=== PATIENT | male | born 1945 | race Caucasian/White ===

== ENCOUNTER → 2016-11-01 | Outpatient (CLI) | payer MEDICARE | LOC: GMAL 11:36 | PROVIDERS: ATTEND Family Medicine | DX: D51.3 Other dietary vitamin B12 deficiency anemia (principal); E55.9 Vitamin D deficiency, unspecified ==

== ENCOUNTER 2018-08-26 18:54 | Emergency (ER) | payer MEDICARE ==
[2018-08-26] MEDS ORDERED: TETRACAINE HCL 0.5% OPHTH SOL 1 DROP ONE (20:00)
[2018-08-26] MEDS ORDERED: TETRACAINE HCL 0.5% OPHTH SOL 1 DROP BOTH_EYES ONE (20:02)
[2018-08-26] MEDS ORDERED: FLUORESCEIN SODIUM OPHTH STRIP BOTH_EYES ONE (20:02)
[2018-08-26] MEDS ORDERED: PREGABALIN 75 MG CAP PO ONE (20:17)
[2018-08-26] MEDS ORDERED: KETOROLAC TROMETHAMINE INJ 30 MG/ML VIAL IM ONE (20:17)
--- NOTE | 2018-08-26 20:20 | ED.PDOC ---
History of Present Illness - General Chief Complaint: Eye Problems Stated Complaint: eye pain Time Seen by Provider: 08/26/18 18:57 Source: patient Exam Limitations: no limitations - History of Present Illness Initial Comments: The patient is a 72-year-old male presenting to the emergency room secondary to increasing left eye pain over the last couple of days. 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 He has been on a ramped up dose of acyclovir along with topical antivirals. He reports that the pain was just too much in his left eye tonight so he presented to the emergency room. He has been applying topical anesthetics in the left eye. I did give his lens blocker Dr. Kaye a call who explained the above. he is going to try to get him into a corneal specialist [facility] or [place]. He currently has bandage contacts in place to help reduce pain. He actually took the left one out earlier today. The right one is still in place and is not giving him much pain. The patient is already on very extensive opiate dosing. Fluorescein exam shows a mild abrasion at approximately 6:00 over the cornea. This is on the left. No real dendritic extensions. No evidence of any skin lesion.extraocular movements are intact. Vision is mildly blurry bilaterally but apparently that is his baseline. No evidence of increased pressure. Pupils are reactive bilaterally. the patient is very worked up and demonstrative. Timing/Duration: unsure Severity: severe Improving Factors: nothing Worsening Factors: nothing Associated Symptoms: denies symptoms Allergies/Adverse Reactions: Allergies NO KNOWN ALLERGY Allergy (Verified 10/09/15 00:33) Home Medications: Ambulatory Orders ALPRAZolam [Xanax] 0.5 mg PO BEDTIME 10/09/15 Acyclovir [Zovirax] 400 mg PO BID 10/09/15 Armodafinil [Nuvigil] 250 mg PO PRN PRN 10/09/15 Bumetanide 1 mg PO PRN PRN 10/09/15 Finasteride 5 mg PO DAILY 10/09/15 Oxycodone HCl 30 mg PO PRN PRN 10/09/15 Spironolactone 25 mg PO PRN PRN 10/09/15 Dilaudid Pain Pump 1 mg DAILY 11/12/15 Review of Systems - Review of Systems Constitutional: States: no symptoms reported EENTM: States: see HPI Respiratory: States: no symptoms reported Cardiology: States: no symptoms reported Gastrointestinal/Abdominal: States: no symptoms reported Genitourinary: States: no symptoms reported Musculoskeletal: States: no symptoms reported Skin: States: no symptoms reported Neurological: States: no symptoms reported Endocrine: States: no symptoms reported All other Systems: No Change from Baseline Past Medical History (General) - Patient Medical History Hx Seizures: No Hx Stroke: No Hx Dementia: No Hx Asthma: No - "short of breath" Hx of COPD: No Hx Cardiac Disorders: No Hx Congestive Heart Failure: Yes - "some doctors say yes, some say no" Hx Pacemaker: No Hx Hypertension: No Hx Thyroid Disease: No Hx Diabetes: No Hx Gastroesophageal Reflux: No Hx Renal Disease: No Hx Cancer: No Hx of HIV: No Hx Hepatitis C: No Hx MRSA: No - Vaccination History Hx Tetanus, Diphtheria Vaccination: Yes Hx Influenza Vaccination: - unknown Hx Pneumococcal Vaccination: Yes - 2016 - Social History Hx Tobacco Use: No Hx Chewing Tobacco Use: No Hx Alcohol Use: No Hx Substance Use: No Hx Substance Use Treatment: No Hx Depression: No Hx Physical Abuse: No Hx Emotional Abuse: No Hx Suspected Abuse: No - Female History Patient : No Family Medical History - Family History Father Family History: Unknown Living Status: Physical Exam - Physical Exam General Appearance: Alert, Anxious Eye Exam: bilateral other - see history of present illness Ears, Nose, Throat: hearing grossly normal, normal pharynx Neck: supple Respiratory: no respiratory distress, no accessory muscle use Cardiovascular/Chest: normal peripheral pulses, no edema Peripheral Pulses: radial,right: 2+, radial,left: 2+ Rectal Exam: deferred Extremity: no pedal edema, normal capillary refill Neurologic: rn visiting II-XII nml as tested, alert, oriented x 3, other - the patient is very anxious Skin Exam: normal color Comments: Vital Signs - 24 hr 08/26/18 19:22 Temperature 97.4 F L Pulse Rate [ 90 Left] Respiratory 18 Rate Blood Pressure 153/96 [Right Arm] O2 Sat by Pulse 94 L Oximetry Progress - Progress Progress: 08/26/18 20:22 the patient's 72-year-old male presents secondary to 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 I have discussed the patient with his lens blocker. He is to keep follow-up with his lens blocker tomorrow to get set up with a corneal specialist. He is to continue taking his acyclovir. The bandage contact was put back in place. He can continue to take his topical pain medications that has been written by his lens blocker. He was given a dose of Lyrica here and Toradol here for additional pain control. ER warnings were given. 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 Copy, Patient Portal Self Enrollment Diet: regular diet Activity: increase activity as tolerated Referrals: Laurent Quijano III, MD [Primary Care Provider] - 1-2 Weeks Home Medications: Ambulatory Orders ALPRAZolam [Xanax] 0.5 mg PO BEDTIME 10/09/15 Acyclovir [Zovirax] 400 mg PO BID 10/09/15 Armodafinil [Nuvigil] 250 mg PO PRN PRN 10/09/15 Bumetanide 1 mg PO PRN PRN 10/09/15 Finasteride 5 mg PO DAILY 10/09/15 Oxycodone HCl 30 mg PO PRN PRN 10/09/15 Spironolactone 25 mg PO PRN PRN 10/09/15 Dilaudid Pain Pump 1 mg DAILY 11/12/15 Additional Instructions: the patient's 72-year-old male presents secondary to left eye pain rel ated to his chronic herpes keratitis. I have discussed the patient with his lens blocker. He is to keep follow-up with his lens blocker tomorrow to get set up with a corneal specialist. He is to continue taking his acyclovir. The bandage contact was put back in place. He can continue to take his topical pain medications that has been written by his lens blocker. He was given a dose of Lyrica here and Toradol here for additional pain control. ER warnings were given.
[2018-08-26 20:47] VITALS: BP 138/73; TEMP 97.9; O2SAT 97
== END 2018-08-26 20:47 | disposition home or self-care (01) ==
LOC: ER 18:54
DX: B00.52 Herpesviral keratitis (principal); S05.02XA Injury of conjunctiva and corneal abrasion without foreign body, left eye, initial encounter; Z79.899 Other long term (current) drug therapy; X58.XXXA Exposure to other specified factors, initial encounter; Y92.9 Unspecified place or not applicable

== ENCOUNTER 2018-08-28 12:38 | Emergency (ER) | payer MEDICARE ==
[2018-08-28] MEDS ORDERED: KETOROLAC TROMETHAMINE INJ 30 MG/ML VIAL IM ONE (12:57)
[2018-08-28] MEDS ORDERED: PREGABALIN 75 MG CAP PO ONE (12:58)
[2018-08-28 12:59] VITALS: BP 171/94; TEMP 98.4; O2SAT 99
--- NOTE | 2018-08-28 13:00 | ED.PDOC ---
History of Present Illness - General Chief Complaint: Eye Problems Stated Complaint: eye complaint Time Seen by Provider: 08/28/18 12:55 Source: patient Exam Limitations: no limitations - History of Present Illness Initial Comments: the patient is a 72-year-old male presenting to the emergency room secondary to uncontrolled pain due to his herpetic keratitis bilaterally. The patient was actually seen here by me little more than 36 hours ago and received a dose of Toradol and Lyrica which worked very well for his pain. He has seen his rad technologist since. He is on appropriate treatment for the eyes. He is wanting to try another dose of the Lyrica and Toradol to see if he can get back under control as far as the pain goes. This does seem appropriate. He appears to have tolerated the doses well. No new symptoms compared to last visit. Timing/Duration: 1 week Severity: moderate Improving Factors: medication Worsening Factors: nothing Associated Symptoms: denies symptoms Allergies/Adverse Reactions: Allergies NO KNOWN ALLERGY Allergy (Verified 10/09/15 00:33) Home Medications: Ambulatory Orders ALPRAZolam [Xanax] 0.5 mg PO BEDTIME 10/09/15 Acyclovir [Zovirax] 400 mg PO BID 10/09/15 Armodafinil [Nuvigil] 250 mg PO PRN PRN 10/09/15 Bumetanide 1 mg PO PRN PRN 10/09/15 Finasteride 5 mg PO DAILY 10/09/15 Oxycodone HCl 30 mg PO PRN PRN 10/09/15 Spironolactone 25 mg PO PRN PRN 10/09/15 Dilaudid Pain Pump 1 mg DAILY 11/12/15 Pregabalin [Lyrica] 75 mg PO DAILY #14 cap 08/28/18 Review of Systems - Review of Systems Constitutional: States: malaise EENTM: States: see HPI Respiratory: States: no symptoms reported Cardiology: States: no symptoms reported Gastrointestinal/Abdominal: States: no symptoms reported Genitourinary: States: no symptoms reported Musculoskeletal: States: see HPI - chronic issues Skin: States: no symptoms reported Neurological: States: see HPI All other Systems: No Change from Baseline Past Medical History (General) - Patient Medical History Hx Seizures: No Hx Stroke: No Hx Dementia: No Hx Asthma: No - "short of breath" Hx of COPD: No Hx Cardiac Disorders: No Hx Congestive Heart Failure: Yes - "some doctors say yes, some say no" Hx Pacemaker: No Hx Hypertension: No Hx Thyroid Disease: No Hx Diabetes: No Hx Gastroesophageal Reflux: No Hx Renal Disease: No Hx Cancer: No Hx of HIV: No Hx Hepatitis C: No Hx MRSA: No - Vaccination History Hx Tetanus, Diphtheria Vaccination: Yes Hx Influenza Vaccination: - unknown Hx Pneumococcal Vaccination: Yes - 2016 - Social History Hx Tobacco Use: No Hx Chewing Tobacco Use: No Hx Alcohol Use: No Hx Substance Use: No Hx Substance Use Treatment: No Hx Depression: No Hx Physical Abuse: No Hx Emotional Abuse: No Hx Suspected Abuse: No - Female History Patient : No Family Medical History - Family History Father Family History: Unknown Living Status: Physical Exam - Physical Exam General Appearance: Alert, No apparent distress Eye Exam: bilateral other - epeat forcing exam is not done. No obvious extraocular lesions. Ears, Nose, Throat: hearing grossly normal, normal ENT inspection Neck: full range of motion, supple Respiratory: lungs clear, normal breath sounds, no respiratory distress, no accessory muscle use Cardiovascular/Chest: normal peripheral pulses, no edema, other - regular rate Peripheral Pulses: radial,right: 2+, radial,left: 2+ Gastrointestinal/Abdominal: non tender, soft Rectal Exam: deferred Extremity: non-tender, no pedal edema, normal capillary refill Neurologic: paediatric thoracic physician II-XII nml as tested, alert, normal mood/affect, oriented x 3 Skin Exam: normal color Comments: Vital Signs - 24 hr 08/28/18 12:45 Temperature 98.4 F Pulse Rate [ 70 pulse ox] Respiratory 18 Rate Blood Pressure 171/94 [Left Arm] O2 Sat by Pulse 99 Oximetry Progress - Progress Progress: 08/28/18 13:01 the patient is a 72-year-old patient with bilateral herpetic keratitis. He has seen ophthalmology and is on appropriate antiviral therapy. He is presenting secondary to uncontrolled pain due to the process. He did respond well at his last visit here to a dose of Toradol and Lyrica. While we can certainly not do extended Toradol dosing we will go ahead and give him a dose here today with another dose of Lyrica. He will be written for Lyrica 75 mg daily for the next 2 weeks as a trial. If this works well for him then he can discuss with his primary care doctor extending this type of treatment as long as he is tolerating it well. ER warnings were given. 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 Copy, Patient Portal Self Enrollment Diet: regular diet Activity: increase activity as tolerated Referrals: Laurent Quijano III, MD [Primary Care Provider] - 1-2 Weeks Prescriptions: Pregabalin [Lyrica] 75 mg PO DAILY #14 cap Home Medications: Ambulatory Orders ALPRAZolam [Xanax] 0.5 mg PO BEDTIME 10/09/15 Acyclovir [Zovirax] 400 mg PO BID 10/09/15 Armodafinil [Nuvigil] 250 mg PO PRN PRN 10/09/15 Bumetanide 1 mg PO PRN PRN 10/09/15 Finasteride 5 mg PO DAILY 10/09/15 Oxycodone HCl 30 mg PO PRN PRN 10/09/15 Spironolactone 25 mg PO PRN PRN 10/09/15 Dilaudid Pain Pump 1 mg DAILY 11/12/15 Pregabalin [Lyrica] 75 mg PO DAILY #14 cap 08/28/18 Additional Instructions: the patient is a 72-year-old patient with bilateral herpetic keratitis. He has seen ophthalmology and is on appropriate antiviral therapy. He is presenting secondary to uncontrolled pain due to the process. He did respond well at his last visit here to a dose of Toradol and Lyrica. While we can certainly not do extended Toradol dosing we will go ahead and give him a dose here today with another dose of Lyrica. He will be written for Lyrica 75 mg daily for the next 2 weeks as a trial. If this works well for him then he can discuss with his primary care doctor extending this type of treatment as long as he is tolerating it well. ER warnings were given.
== END 2018-08-28 13:46 | disposition home or self-care (01) ==
LOC: ER 12:38
DX: B00.52 Herpesviral keratitis (principal)

== ENCOUNTER 2018-09-02 13:45 | Emergency (ER) | payer MEDICARE ==
[2018-09-02] MEDS ORDERED: KETOROLAC TROMETHAMINE INJ 60 MG/2 ML VIAL IM ONE ×2 (14:07→14:13)
[2018-09-02] MEDS ORDERED: TETRACAINE HCL 0.5% OPHTH SOL 1 DROP ONE (14:08)
[2018-09-02] MEDS ORDERED: OXYMETAZOLINE NASAL SPRAY 15 ML BTTL ONE (14:30)
[2018-09-02] MEDS ORDERED: OXYMETAZOLINE NASAL SPRAY 15 ML BTTL BNAS ONE (14:31)
--- NOTE | 2018-09-02 15:07 | ED.PDOC ---
History of Present Illness - General Chief Complaint: Eye Problems Stated Complaint: loss of vision Time Seen by Provider: 09/02/18 14:03 Source: patient Exam Limitations: clinical condition - History of Present Illness Initial Comments: Patient presents with an acute exacerbation of herpes keratitis. He was diagnosed three years ago and is on chronic acyclovir. He says that he usually has 2 exacerbations per year that last about 2-4 days and he does not get loss of vision, just more pain. This episode has been going on for about 3 weeks. He saw his contingents supervisor, Dr. Kaye, two days ago and got some lubricant eyedrops that have topical anesthetic in them. This morning he woke up in excrutiating pain. He says that if he holds his hand in front of his face, he can barely make out the silhouette. He denies having had a loss of vision before. No other complaints. Timing/Duration: changing over time Severity: severe Improving Factors: nothing Worsening Factors: nothing Associated Symptoms: denies symptoms Allergies/Adverse Reactions: Allergies NO KNOWN ALLERGY Allergy (Verified 08/28/18 12:59) Home Medications: Ambulatory Orders ALPRAZolam [Xanax] 0.5 mg PO BEDTIME 10/09/15 Acyclovir [Zovirax] 400 mg PO BID 10/09/15 Armodafinil [Nuvigil] 250 mg PO PRN PRN 10/09/15 Bumetanide 1 mg PO PRN PRN 10/09/15 Finasteride 5 mg PO DAILY 10/09/15 Oxycodone HCl 30 mg PO PRN PRN 10/09/15 Spironolactone 25 mg PO PRN PRN 10/09/15 Dilaudid Pain Pump 1 mg DAILY 11/12/15 Pregabalin [Lyrica] 75 mg PO DAILY #14 cap 08/28/18 Review of Systems - Review of Systems Constitutional: States: no symptoms reported EENTM: States: see HPI Respiratory: States: no symptoms reported Cardiology: States: no symptoms reported Gastrointestinal/Abdominal: States: no symptoms reported Genitourinary: States: no symptoms reported Musculoskeletal: States: no symptoms reported Skin: States: no symptoms reported Neurological: States: no symptoms reported Endocrine: States: no symptoms reported Hematologic/Lymphatic: States: no symptoms reported Past Medical History (General) - Patient Medical History Hx Seizures: No Hx Stroke: No Hx Dementia: No Hx Asthma: No - "short of breath" Hx of COPD: No Hx Cardiac Disorders: No Hx Congestive Heart Failure: No Hx Pacemaker: No Hx Hypertension: No Hx Thyroid Disease: No Hx Diabetes: No Hx Gastroesophageal Reflux: No Hx Renal Disease: No Hx Cancer: No Hx of HIV: No Hx Hepatitis C: No Hx MRSA: No Surgical History: appendectomy, cholecystectomy, tonsillectomy, other - Vaccination History Hx Tetanus, Diphtheria Vaccination: Yes Hx Influenza Vaccination: Yes - 2018 Hx Pneumococcal Vaccination: Yes - 2018 - Social History Hx Tobacco Use: No Hx Chewing Tobacco Use: No Hx Alcohol Use: No Hx Substance Use: No Hx Substance Use Treatment: No Hx Depression: No Hx Physical Abuse: No Hx Emotional Abuse: No Hx Suspected Abuse: No - Female History Patient : No Family Medical History - Family History Father Family History: Unknown Living Status: Physical Exam - Physical Exam General Appearance: Obvious distress Eye Exam: bilateral other - injected sclera, PERRL, patient is guarding Ears, Nose, Throat: normal ENT inspection Neck: non-tender, full range of motion, supple Respiratory: lungs clear Cardiovascular/Chest: regular rate, rhythm, no edema Gastrointestinal/Abdominal: normal bowel sounds, non tender, soft Extremity: normal range of motion, non-tender Neurologic: alert, normal mood/affect, oriented x 3 Skin Exam: normal color Lymphatic: no adenopathy Progress - Progress Progress: 09/02/18 15:09 Patient was given Toradol 30 mg IM x one and the pain improved markedly. I called his contingents supervisor, Dr. Kaye, who said that the patient's baseline acuity was 20/50. We attempted to have the patient do an acuity test but he could not see the chart. Dr. Kaye agreed that if the patient had loss of vision that he would benefit from seeing an opthalmologist today. He was accepted for transfer to [facility]. The patient chose to go by private vehicle. Care warnings were given and the patient agreed to go straight to the E.R. there. Departure - Departure Clinical Impression: Acute eye pain, Herpes simplex keratitis, Vision loss Disposition: Transfer to Hospital Condition: Fair Departure Forms: ED Discharge - Pt. Copy, Patient Portal Self Enrollment Diet: other - NPO Activity: other - as per the inpatient doctor Referrals: Laurent Quijano III, MD [Primary Care Provider] - 1-2 Weeks Home Medications: Ambulatory Orders ALPRAZolam [Xanax] 0.5 mg PO BEDTIME 10/09/15 Acyclovir [Zovirax] 400 mg PO BID 10/09/15 Armodafinil [Nuvigil] 250 mg PO PRN PRN 10/09/15 Bumetanide 1 mg PO PRN PRN 10/09/15 Finasteride 5 mg PO DAILY 10/09/15 Oxycodone HCl 30 mg PO PRN PRN 10/09/15 Spironolactone 25 mg PO PRN PRN 10/09/15 Dilaudid Pain Pump 1 mg DAILY 11/12/15 Pregabalin [Lyrica] 75 mg PO DAILY #14 cap 08/28/18
[2018-09-02] MEDS ORDERED: TETRACAINE HCL 0.5% OPHTH SOL 1 DROP BOTH_EYES ONE (15:15)
[2018-09-02 16:17] VITALS: BP 167/91; TEMP 97.6; O2SAT 93
== END 2018-09-02 16:30 | disposition short-term general hospital (02) ==
LOC: ER 13:45
DX: B00.52 Herpesviral keratitis (principal); H54.7 Unspecified visual loss; Z79.899 Other long term (current) drug therapy

== ENCOUNTER 2018-09-03 05:30 | Emergency (ER) | payer MEDICARE ==
--- NOTE | 2018-09-03 06:06 | ED.PDOC ---
History of Present Illness - General Source: patient Exam Limitations: no limitations - History of Present Illness Initial Comments: Patient presents with acute on chronic eye pain due to herpes keratitis. He was here this morning and said that he could not see his hand in front of his face. At that time, I contacted his manager trainee, Dr. Kaye, who said that if he has lost vision that it would be reasonable to have the patient see the opthalmologist rehabilitation aide/scheduler at an OSH. [facility] was the closest hospital that had an mobile device developer rehabilitation aide/scheduler and open beds if admission was needed. I spoke with an E.R. doctor there who agreed to see the patient but asked that I talk to their mobile device developer first. The transfer center advised me that the E.R. doctor could not request that because the patient was "auto- accepted". However, I asked the transfer center to page the mobile device developer so I could talk with them before the patient arrived. I have been here since that call and the opthalmologist never called here. It is unknown by me whether he/she was paged or not. The patient says that he got to [facility] and was given some eyedrops and two prescriptions. He says that the E.R. doctor in [place] told him it was "a wasted trip" and that "it could have been handled over the phone". It is unknown by me if that was actually told to the patient. He was told to be seen by Dr. Kaye first thing this morning. The pat teresa is very anxious and he said he called EMS because he was tripping over things in his apartment. He was planning to see Dr. Kaye this morning. He complains of pain in both eyes but says it has gotten better since he was treated with "eyedrops" in [place]. He says that "they didn't leave the drops in long enough". Patient is not a very good historian likely due to his anxiety about his condition. No other history is available. Timing/Duration: changing over time Severity: moderate Improving Factors: nothing Worsening Factors: nothing Associated Symptoms: denies symptoms - General Chief Complaint: Eye Problems Stated Complaint: eye pain due to ulcers in eyes Time Seen by Provider: 09/03/18 05:54 - History of Present Illness Allergies/Adverse Reactions: Allergies NO KNOWN ALLERGY Allergy (Verified 09/03/18 05:52) Home Medications: Ambulatory Orders ALPRAZolam [Xanax] 0.5 mg PO BEDTIME 10/09/15 Acyclovir [Zovirax] 400 mg PO BID 10/09/15 Armodafinil [Nuvigil] 250 mg PO PRN PRN 10/09/15 Bumetanide 1 mg PO PRN PRN 10/09/15 Finasteride 5 mg PO DAILY 10/09/15 Oxycodone HCl 30 mg PO PRN PRN 10/09/15 Spironolactone 25 mg PO PRN PRN 10/09/15 Dilaudid Pain Pump 1 mg DAILY 11/12/15 Pregabalin [Lyrica] 75 mg PO DAILY #14 cap 08/28/18 Review of Systems - Review of Systems Constitutional: States: no symptoms reported EENTM: States: see HPI Respiratory: States: no symptoms reported Cardiology: States: no symptoms reported Gastrointestinal/Abdominal: States: no symptoms reported Genitourinary: States: no symptoms reported Musculoskeletal: States: no symptoms reported Skin: States: no symptoms reported Neurological: States: no symptoms reported Endocrine: States: no symptoms reported Hematologic/Lymphatic: States: no symptoms reported Past Medical History (General) - Patient Medical History Hx Seizures: No Hx Stroke: No Hx Dementia: No Hx Asthma: No Hx of COPD: No Hx Cardiac Disorders: No Hx Congestive Heart Failure: No Hx Pacemaker: No Hx Hypertension: No Hx Thyroid Disease: No Hx Diabetes: No Hx Gastroesophageal Reflux: No Hx Renal Disease: No Hx Cancer: No Hx of HIV: No Hx Hepatitis C: No Hx MRSA: No Surgical History: appendectomy, tonsillectomy - Vaccination History Hx Tetanus, Diphtheria Vaccination: Yes Hx Influenza Vaccination: Yes - 2018 Hx Pneumococcal Vaccination: Yes - 2018 - Social History Hx Tobacco Use: No Hx Chewing Tobacco Use: No Hx Alcohol Use: No Hx Substance Use: No Hx Substance Use Treatment: No Hx Depression: No Hx Physical Abuse: No Hx Emotional Abuse: No Hx Suspected Abuse: No - Female History Patient : No Family Medical History - Family History Father Family History: Unknown Living Status: Physical Exam - Physical Exam General Appearance: Alert Eye Exam: bilateral other - opaque cornea. pupils reactive to light Ears, Nose, Throat: normal ENT inspection Neck: non-tender, full range of motion, supple Respiratory: lungs clear, normal breath sounds Cardiovascular/Chest: regular rate, rhythm, no edema Gastrointestinal/Abdominal: normal bowel sounds, non tender, soft Neurologic: alert, oriented x 3 Progress - Progress Progress: 09/03/18 06:30 Patient says he is planning to be in Dr. Kaye's office at 8 a.m. He will be kept here in the E.D. until almost [address] Kaye's office. Patient received Toradol 30 mg IM x one in the E.D. He slept most of the time and see med pain free, although, somewhat anxious. Departure - Departure Diet: resume usual diet Activity: increase activity as tolerated - Departure Clinical Impression: Herpes keratitis Disposition: Discharge to Home or Self Care Condition: Good Departure Forms: ED Discharge - Pt. Copy, Patient Portal Self Enrollment Instructions: DI for Eye Pain Referrals: Laurent Quijano III, MD [Primary Care Provider] - 1-2 Weeks Home Medications: Ambulatory Orders ALPRAZolam [Xanax] 0.5 mg PO BEDTIME 10/09/15 Acyclovir [Zovirax] 400 mg PO BID 10/09/15 Armodafinil [Nuvigil] 250 mg PO PRN PRN 10/09/15 Bumetanide 1 mg PO PRN PRN 10/09/15 Finasteride 5 mg PO DAILY 10/09/15 Oxycodone HCl 30 mg PO PRN PRN 10/09/15 Spironolactone 25 mg PO PRN PRN 10/09/15 Dilaudid Pain Pump 1 mg DAILY 11/12/15 Pregabalin [Lyrica] 75 mg PO DAILY #14 cap 08/28/18 Additional Instructions: Go directly to Dr. Kaye's office upon leaving the E.R. today.
[2018-09-03] MEDS ORDERED: KETOROLAC TROMETHAMINE INJ 30 MG/ML VIAL IM ONE (06:07)
[2018-09-03 08:21] VITALS: TEMP 97.6
[2018-09-03 08:28] VITALS: BP 153/73; O2SAT 98
== END 2018-09-03 08:27 | disposition home or self-care (01) ==
LOC: ER 05:30
DX: B00.52 Herpesviral keratitis (principal); Z79.899 Other long term (current) drug therapy

== ENCOUNTER 2018-10-06 13:58 | Emergency (ER) | payer MEDICARE ==
--- NOTE | 2018-10-06 14:24 | ED.PDOC ---
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 Patient has had a difficult time with depression and anxiety for the past month. 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 Since then he's been spiraling down with severe depression and anxiety. He was hospitalized several weeks ago for suicidal ideations and was doing better and was released home. He's been home for approximately a week but yesterday started having increasing anxiety and this morning started complaining of suicidal ideations with desire to . Patient was evaluated by mental health facility but they would like medical clearance prior to admission. Patient states he has chronic back pain that he uses a lot of pump for an as needed OxyContin. His brother states he's been medicating with his leftover OxyContin that he does not need for his back for his eye pain. Patient states he otherwise was in normal usual physical health including no fever, chills, cough or cold symptoms no chest pain or shortness of breath. Timing/Duration: 24 hours Severity: severe Improving Factors: nothing Worsening Factors: nothing Associated Symptoms: denies symptoms Allergies/Adverse Reactions: Allergies NO KNOWN ALLERGY Allergy (Verified 10/06/18 14:13) Home Medications: Ambulatory Orders ALPRAZolam [Xanax] 0.5 mg PO BEDTIME 10/09/15 Acyclovir [Zovirax] 400 mg PO BID 10/09/15 Dilaudid Pain Pump 1 mg DAILY 11/12/15 Doxycycline (Monohydrate) [Doxycycline] 100 mg PO DAILY 10/06/18 Haloperidol [Haldol] 5 mg PO BEDTIME 10/06/18 Oxycodone HCl [Oxycontin] 15 mg PO Q6H PRN 10/06/18 Prednisolone Opthalmic 1 drop RIGHT_EYE DAILY 10/06/18 Review of Systems - Review of Systems Constitutional: States: no symptoms reported. Denies: chills, fever EENTM: States: eye pain - secondary to recurrent infection of his eyes . Denies: ear discharge, nose congestion, throat pain Respiratory: States: no symptoms reported. Denies: cough, short of breath, wheezing Cardiology: States: no symptoms reported. Denies: chest pain, edema, palpitations Gastrointestinal/Abdominal: States: no symptoms reported. Denies: abdominal pain, constipation, diarrhea, nausea Genitourinary: States: no symptoms reported. Denies: frequency Musculoskeletal: States: back pain - chronic at baseline Past Medical History (General) - Patient Medical History Hx Seizures: No Hx Stroke: No Hx Dementia: No Hx Asthma: No Hx of COPD: No Hx Cardiac Disorders: No Hx Congestive Heart Failure: No Hx Pacemaker: No Hx Hypertension: No Hx Thyroid Disease: No Hx Diabetes: No Hx Gastroesophageal Reflux: No Hx Renal Disease: No Hx Cancer: No Hx of HIV: No Hx Hepatitis C: No Hx MRSA: No Surgical History: appendectomy, tonsillectomy - Vaccination History Hx Tetanus, Diphtheria Vaccination: Yes Hx Influenza Vaccination: Yes - 2018 Hx Pneumococcal Vaccination: Yes - 2018 - Social History Hx Tobacco Use: No Hx Chewing Tobacco Use: No Hx Alcohol Use: No Hx Substance Use: No Hx Substance Use Treatment: No Hx Depression: No Hx Physical Abuse: No Hx Emotional Abuse: No Hx Suspected Abuse: No - Female History Patient : No Family Medical History - Family History Father Family History: Unknown Living Status: Physical Exam - Physical Exam General Appearance: Alert, Comfortable, Frail, No apparent distress Eye Exam: bilateral other - cloudy bilaterally with erythema of the inferior conjuctiva on the L Ears, Nose, Throat: normal ENT inspection, normal pharynx Neck: non-tender, full range of motion, supple, normal inspection Respiratory: chest non-tender, lungs clear, normal breath sounds, no respiratory distress Cardiovascular/Chest: normal peripheral pulses, regular rate, rhythm, no edema, no murmur Gastrointestinal/Abdominal: normal bowel sounds, non tender, soft Back Exam: normal inspection Extremity: non-tender Neurologic: alert, normal mood/affect, other - blind in both eyes Progress - Results/Orders Results/Orders: Chest Xray no acute cardiopulmonary process 10/06/18 14:22 EKG Assessment ONCE 10/06/18 14:30 EKG STAT Laboratory Results WBC 4.4 K/mm3 (4.8-10.8) L 10/06/18 14:55 RBC 5.19 M/mm3 (4.70-6.10) 10/06/18 14:55 Hgb 14.1 gm/dL (14.0-18.0) 10/06/18 14:55 Hct 43.3 % (42.0-52.0) 10/06/18 14:55 MCV 83.5 fl (80.0-94.0) 10/06/18 14:55 MCH 27.1 pg (27.0-31.0) 10/06/18 14:55 MCHC 32.5 g/dL (33.0-37.0) L 10/06/18 14:55 RDW 14.4 % (11.5-14.5) 10/06/18 14:55 Plt Count 211 K/mm3 (130-400) 10/06/18 14:55 MPV 7.8 fl (7.40-10.4) 10/06/18 14:55 Absolute Neuts (auto) 2.90 K/uL (1.8-6.8) 10/06/18 14:55 Absolute Lymphs (auto) 0.90 K/uL (1.0-3.4) L 10/06/18 14:55 Absolute Monos (auto) 0.30 K/uL (0.2-0.8) 10/06/18 14:55 Absolute Eos (auto) 0.10 K/uL (0.0-0.4) 10/06/18 14:55 Absolute Basos (auto) 0.10 K/uL (0.0-0.1) 10/06/18 14:55 Neutrophils % 66.4 % (42.0-78.0) 10/06/18 14:55 Lymphocytes % 21.6 % (20.0-50.0) 10/06/18 14:55 Monocytes % 7.8 % (2.0-9.0) 10/06/18 14:55 Eosinophils % 2.5 % (1.0-5.0) 10/06/18 14:55 Basophils % 1.7 % (0.0-2.0) 10/06/18 14:55 Sodium 138 mmol/L (135-145) 10/06/18 12:55 Potassium 3.9 mmol/L (3.6-5.0) 10/06/18 12:55 Chloride 101 mmol/L (101-111) 10/06/18 12:55 Carbon Dioxide 31 mmol/L (21-31) 10/06/18 12:55 Anion Gap 9.9 (12-18) L 10/06/18 12:55 BUN 16 mg/dL (7-18) 10/06/18 12:55 Creatinine 0.91 mg/dL (0.6-1.3) 10/06/18 12:55 BUN/Creatinine Ratio 17.6 (10-20) 10/06/18 12:55 Random Glucose 97 mg/dL (70-105) 10/06/18 12:55 Serum Osmolality 276.8 mOsm/L (275-295) 10/06/18 12:55 Calcium 8.5 mg/dL (8.4-10.2) 10/06/18 12:55 Total Bilirubin 0.5 mg/dL (0.2-1.0) 10/06/18 12:55 AST 15 IU/L (10-42) 10/06/18 12:55 ALT 12 IU/L (10-60) 10/06/18 12:55 Alkaline Phosphatase 76 IU/L (42-121) 10/06/18 12:55 Serum Total Protein 6.9 gm/dL (6.4-8.2) 10/06/18 12:55 Albumin 3.7 g/dl (3.2-5.5) 10/06/18 12:55 Globulin 3.2 gm/dL (2.3-3.5) 10/06/18 12:55 Albumin/Globulin Ratio 1.2 (1.1-1.9) 10/06/18 12:55 Urine Color Yellow (Yellow) 10/06/18 14:25 Urine Appearance Clear (Clear) 10/06/18 14:25 Urine pH 6.5 (4.5-7.8) 10/06/18 14:25 Ur Specific Castine 1.025 (1.005-1.030) 10/06/18 14:25 Urine Protein Negative mg/dL 10/06/18 14:25 Urine Glucose (UA) Negative mg/dL (Negative) 10/06/18 14:25 Urine Ketones Negative mg/dL (NEGATIVE) 10/06/18 14:25 Urine Blood Negative (Negative) 10/06/18 14:25 Urine Nitrite Negative 10/06/18 14:25 Urine Bilirubin Negative (NEGATIVE) 10/06/18 14:25 Urine Urobilinogen 0.2 mg/dL (0.2-1.0) 10/06/18 14:25 Ur Leukocyte Esterase Negative (Negative) 10/06/18 14:25 Urine RBC 0-1 /hpf 10/06/18 14:25 Urine WBC 0-1 /hpf 10/06/18 14:25 Ur Epithelial Cells 0-1 /hpf 10/06/18 14:25 Urine Bacteria Rare 10/06/18 14:25 Urine Opiates Screen Positive ng/mL (2000) H 10/06/18 14:25 Urine Barbiturates Negative ng/mL (200) 10/06/18 14:25 Ur Phencyclidine Scrn Negative ng/mL (25) 10/06/18 14:25 U Amphetamin/Meth Scrn Negative ng/mL (1000) 10/06/18 14:25 U Benzodiazepines Scrn Positive ng/mL (200) H 10/06/18 14:25 U Cocaine Metab Screen Negative ng/mL (300) 10/06/18 14:25 U Cannabinoids Screen Negative ng/mL (50) 10/06/18 14:25 Ethyl Alcohol < 5.00 mg/dL (0-79) 10/06/18 14:55 - EKG/XRAY/CT EKG: Sinus, no ST T wave changes Comments: HR 63 normal axis Departure - Departure Clinical Impression: Suicidal ideations Disposition: Transfer to Psych Hospital Condition: Fair Departure Forms: ED Discharge - Pt. Copy, Patient Portal Self Enrollment Referrals: Laurent Quijano III, MD [Primary Care Provider] - 1-2 Weeks Home Medications: Ambulatory Orders ALPRAZolam [Xanax] 0.5 mg PO BEDTIME 10/09/15 Acyclovir [Zovirax] 400 mg PO BID 10/09/15 Dilaudid Pain Pump 1 mg DAILY 11/12/15 Doxycycline (Monohydrate) [Doxycycline] 100 mg PO DAILY 10/06/18 Haloperidol [Haldol] 5 mg PO BEDTIME 10/06/18 Oxycodone HCl [Oxycontin] 15 mg PO Q6H PRN 10/06/18 Prednisolone Opthalmic 1 drop RIGHT_EYE DAILY 10/06/18 Additional Instructions: patient medically cleared for admission to psych facility
--- NOTE | 2018-10-06 15:14 | RAD ---
EXAM DESCRIPTION: Chest,1 View CLINICAL HISTORY: medical clearance COMPARISON: None. FINDINGS: Cardiac silhouette is within normal limits. There is no focal parenchymal or pleural disease. Visualized osseous structures are within normal limits. IMPRESSION: No evidence of acute cardiopulmonary disease. Electronically signed by: Brett Terry 10/06/2018 3:12 PM [facility]
[2018-10-06 18:24] VITALS: BP 146/90; TEMP 97.2; O2SAT 93
== END 2018-10-06 17:45 ==
LOC: ER 13:58
DX: Z02.89 Encounter for other administrative examinations (principal); R45.851 Suicidal ideations; F41.9 Anxiety disorder, unspecified; F32.9 Major depressive disorder, single episode, unspecified; Z79.891 Long term (current) use of opiate analgesic

== ENCOUNTER 2019-04-18 | Emergency (ER) | payer MEDICARE ==
--- NOTE | 2019-04-18 13:20 | ED.PDOC ---
History of Present Illness - General Time Seen by Provider: 04/18/19 12:53 Source: patient Exam Limitations: no limitations - History of Present Illness Initial Comments: the patient is a 73-year-old male presenting to emergency room secondary to having taken 120 mg of his oxycodone, the equivalent of 8 tablets from a previous prescription due to uncontrolled back pain and inability to get some sleep. he took them about 2-1/2 hours ago. The patient is alert and oriented. He did report some mild nausea at one point. No syncope. He has taken up to 900 mg of oxycodone in the day in the past for his chronic back pain. He does currently have a pain pump. The patient reports that he is unable to stay for further monitoring due to severe back pain, he needs to get back home. He does have a family member who can stay with him for the next few hours and make sure that he does not become less responsive. He reports that he will not do this again. Timing/Duration: 1-3 hours Severity: mild Improving Factors: nothing Worsening Factors: nothing Associated Symptoms: malaise Allergies/Adverse Reactions: Allergies NO KNOWN ALLERGY Allergy (Verified 10/06/18 14:13) Home Medications: Ambulatory Orders ALPRAZolam [Xanax] 0.5 mg PO BEDTIME 10/09/15 Acyclovir [Zovirax] 400 mg PO BID 10/09/15 Dilaudid Pain Pump 1 mg DAILY 11/12/15 Doxycycline (Monohydrate) [Doxycycline] 100 mg PO DAILY 10/06/18 Haloperidol [Haldol] 5 mg PO BEDTIME 10/06/18 Oxycodone HCl [Oxycontin] 15 mg PO Q6H PRN 10/06/18 Prednisolone Opthalmic 1 drop RIGHT_EYE DAILY 10/06/18 Review of Systems - Review of Systems Constitutional: States: malaise EENTM: States: no symptoms reported Respiratory: States: no symptoms reported Cardiology: States: no symptoms reported Gastrointestinal/Abdominal: States: nausea Genitourinary: States: no symptoms reported Musculoskeletal: States: back pain - chronic Skin: States: no symptoms reported Neurological: States: no symptoms reported - chronic issues Endocrine: States: no symptoms reported All other Systems: No Change from Baseline Past Medical History (General) - Patient Medical History Hx Seizures: No Hx Stroke: No Hx Dementia: No Hx Asthma: No Hx of COPD: No Hx Cardiac Disorders: No Hx Congestive Heart Failure: No Hx Pacemaker: No Hx Hypertension: No Hx Thyroid Disease: No Hx Diabetes: No Hx Gastroesophageal Reflux: No Hx Renal Disease: No Hx Cancer: No Hx of HIV: No Hx Hepatitis C: No Hx MRSA: No - Vaccination History Hx Tetanus, Diphtheria Vaccination: Yes Hx Influenza Vaccination: Yes - 2018 Hx Pneumococcal Vaccination: Yes - 2018 - Social History Hx Tobacco Use: No Hx Chewing Tobacco Use: No Hx Alcohol Use: No Hx Substance Use: No Hx Substance Use Treatment: No Hx Depression: No Hx Physical Abuse: No Hx Emotional Abuse: No Hx Suspected Abuse: No - Female History Patient : No Family Medical History - Family History Father Family History: Unknown Living Status: Physical Exam - Physical Exam General Appearance: Alert Eye Exam: bilateral normal Ears, Nose, Throat: hearing grossly normal, other - chronic vision changes Neck: non-tender Respiratory: lungs clear, normal breath sounds, no respiratory distress, no accessory muscle use Cardiovascular/Chest: normal peripheral pulses, no edema, other - regular rate Peripheral Pulses: radial,right: 2+, radial,left: 2+ Gastrointestinal/Abdominal: non tender, soft Rectal Exam: deferred Back Exam: other - hronic changes Extremity: no pedal edema, normal capillary refill 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 He is alert and oriented. I have tried to convince the patient to stay for monitoring for the next few hours to make sure that there is no delayed onset with these medications. He is adamant that he cannot stay secondary to his chronic back pain. His ex- has agreed to stay with him for the next few hours to make sure that he does not have a deteriorating mental status. He needs to avoid overusing his pain medications. ER warnings were given for any significant worsening. Vital signs appear stable. Departure - Departure Clinical Impression: Prescription drug abuse Disposition: Discharge to Home or Self Care Condition: Fair Diet: regular diet Activity: increase activity as tolerated Referrals: Laurent Quijano III, MD [Primary Care Provider] - 1-2 Weeks Home Medications: Ambulatory Orders ALPRAZolam [Xanax] 0.5 mg PO BEDTIME 10/09/15 Acyclovir [Zovirax] 400 mg PO BID 10/09/15 Dilaudid Pain Pump 1 mg DAILY 11/12/15 Doxycycline (Monohydrate) [Doxycycline] 100 mg PO DAILY 10/06/18 Haloperidol [Haldol] 5 mg PO BEDTIME 10/06/18 Oxycodone HCl [Oxycontin] 15 mg PO Q6H PRN 10/06/18 Prednisolone Opthalmic 1 drop RIGHT_EYE DAILY 10/06/18 Additional Instructions: the patient is a 73-year-old male that took approximately 120 mg of oxycodone about 2-1/2-3 hours ago. He is alert and oriented. I have tried to convince the patient to stay for monitoring for the next few hours to make sure that there is no delayed onset with these medications. He is adamant that he cannot stay secondary to his chronic back pain. His ex- has agreed to stay with him for the next few hours to make sure that he does not have a deteriorating mental status. He needs to avoid overusing his pain medications. ER warnings were given for any significant worsening. Vital signs appear stable.
== END 2019-04-18 13:30 | disposition home or self-care (01) ==

== ENCOUNTER → 2019-05-20 | Outpatient (CLI) | payer MEDICARE | LOC: GMAL 10:38 | PROVIDERS: ATTEND Family Medicine | DX: D51.3 Other dietary vitamin B12 deficiency anemia (principal); R53.83 Other fatigue; E55.9 Vitamin D deficiency, unspecified; Z12.5 Encounter for screening for malignant neoplasm of prostate; Z79.899 Other long term (current) drug therapy | CPT/HCPCS: 82306; 82607; 84443; G0103 ==

== ENCOUNTER → 2019-09-24 | Outpatient (CLI) | payer MEDICARE ==
--- NOTE | 2019-09-24 14:52 | MRI ---
EXAM DESCRIPTION: Lumbar Spine w/o Contrast : Magnetic Resonance Imaging. CLINICAL HISTORY: LUMBAR RADICULOPATHY COMPARISON: Lumbar spine radiographs November 2011. TECHNIQUE: Multiplanar, multiple standard sequences, non contrast MRI, lumbar spine. FINDINGS: L5-S1: The disc is well visualized on axial T2 series 501, image 3. Normal signal in the disc with disc space preserved. Minimal anterior endplate reactive changes. No posterior bulging. Degenerative hypertrophy of the posterior flavum ligaments and facet joints (posterior elements), more left than right. Facet spur encroaching on the right foramen which is moderately to severely narrowed. Mild to moderate narrowing of the left foramen. L4-L5: Anterior bilateral moderate endplate reactive changes with severe disc narrowing and desiccation. 2 mm grade 1 retrolisthesis. Moderate degenerative hypertrophy of the posterior elements impressing on the lateral thecal sac. AP canal diameter 13 mm. Moderate bilateral foraminal narrowing more left than right. Bilateral disc spur complex encroaching on the foramina. L3-L4: Minimal disc desiccation and anterior disc space narrowing. Anterior inferior L3 endplate moderate reactive changes. Minimal posterior broad-based bulge. Moderate degenerative hypertrophy of the posterior elements impressing on the posterior lateral thecal sac. AP canal diameter 9 mm. Moderate to severe right foraminal narrowing and moderate left foraminal narrowing. L2-L3: Disc desiccation posterior disc space loss. Moderate to severe degenerative hypertrophy of the posterior elements, impressing on the posterior lateral thecal sac. AP canal diameter 9 mm. Mild to moderate right foraminal narrowing and mild left foraminal narrowing. L1-L2: Disc desiccation with disc space maintained. No significant bulging. Mild to moderate hypertrophic degenerative changes of the posterior elements dressing on the posterior lateral thecal sac. AP canal diameter 12 mm. Bilateral mild foraminal narrowing. T12-L1: Moderate disc space loss and disc desiccation. Anterior moderate endplate reactive changes with inferior T12 Schmorl's node containing fluid. Also acute spondylosis with marrow edema in the superior anterior L1 endplate. Minimal posterior bulge into the right of midline. Minimal hypertrophic degeneration posterior elements Conus terminates at this level. Bilateral mild foraminal narrowing. T11-T12: Disc desiccation with anterior disc space loss and anterior bilateral moderate endplate reactive changes. No posterior disc bulge. Mild canal narrowing. No impingement of the cord. Bilateral foramina are patent.. No significant scoliosis. L3-L5 kyphosis. Paravertebral soft tissues paraspinal diffuse muscle atrophy bilaterally.. Distal cord normal signal and caliber. Otherwise normal marrow signal in the remaining vertebral bodies and the posterior elements. Vertebral bodies are not compressed at any level. IMPRESSION: 1. Degenerative hypertrophy of the posterior flavum ligaments and bilateral facet joints (posterior elements) at almost every level inferiorly to canal narrowing or stenosis. Multiple levels of spondylosis and disc desiccation. 2. Degenerative hypertrophy of the posterior elements and L5-S1 with moderate to severe narrowing of the right foramen. 3. Multifactorial mild central canal stenosis at L3-L4. Moderate to severe right foraminal narrowing. 4. Grade 1 retrolisthesis L4-L5 with moderate narrowing of the foramina from bilateral moderate spondylosis and disc spur complex encroachment on the foramina. 5. Mild central canal stenosis at L2-L3 related to degenerative hypertrophy of the posterior elements. 6. Moderate spondylosis of the inferior anterior T12 endplate and acute spondylosis of the superior anterior L1 endplate but no fluid signal in the disc. Canal is patent with posterior right paracentral disc bulge. Electronically signed by: Brett Varela MD 09/24/2019 2:50 PM [facility]
== END ==
LOC: MRI 06:38
PROVIDERS: ATTEND Nurse Practitioner Family
DX: M51.17 Intervertebral disc disorders with radiculopathy, lumbosacral region (principal); M51.86 Other intervertebral disc disorders, lumbar region; M48.061 Spinal stenosis, lumbar region without neurogenic claudication; M43.16 Spondylolisthesis, lumbar region; M51.36 Other intervertebral disc degeneration, lumbar region; M47.896 Other spondylosis, lumbar region; M47.895 Other spondylosis, thoracolumbar region; M24.28 Disorder of ligament, vertebrae

== ENCOUNTER 2019-10-20 14:29 | Emergency (ER) | payer MEDICARE, OTHER ==
[2019-10-20] MEDS: SODIUM CHLORIDE 0.9% 1000ML 1,000 ML IVS PRN (14:51)
[2019-10-20] MEDS: SODIUM CHLORIDE 0.9% (FLUSH) 10 ML SYG IV PRN (14:51)
--- NOTE | 2019-10-20 17:31 | ED.PDOC ---
History of Present Illness - General Chief Complaint: Behavioral / Psych Stated Complaint: Pt attempted suicide via OD Time Seen by Provider: 10/20/19 14:40 Source: patient, RN notes reviewed, Vital Signs reviewed, EMS notes reviewed, family - Brother Exam Limitations: intoxication - Patient was heavily sedated secondary to narcotic overdose. I was able to get history from him but he would only answer in 1-2 word phrases. - History of Present Illness Initial Comments: Patient is a 74-year-old white male who presents with attempted suicide via overdose of his OxyContin. Per the patient at approximately 3:00 this morning he took a two-week supply of OxyContin. Patient is complaining of back pain and cannot take it anymore and wants to end his life. Per the patient's brother he has had attempted suicide in the past and is known as a chronic pain patient secondary to his back pain. The pain in his back is stabbing in nature, 10/10, nothing is helping the pain including his narcotic pain medicine. Timing/Duration: this morning Severity: severe Associated Symptoms: anxiety, ingestion, suicidal ideation Allergies/Adverse Reactions: Allergies NO KNOWN ALLERGY Allergy (Verified 10/20/19 14:58) Home Medications: Ambulatory Orders ALPRAZolam [Xanax] 0.5 mg PO BEDTIME 10/09/15 Acyclovir [Zovirax] 400 mg PO BID 10/09/15 Dilaudid Pain Pump 1 mg DAILY 11/12/15 Doxycycline (Monohydrate) [Doxycycline] 100 mg PO DAILY 10/06/18 Haloperidol [Haldol] 5 mg PO BEDTIME 10/06/18 Oxycodone HCl [Oxycontin] 15 mg PO Q6H PRN 10/06/18 Prednisolone Opthalmic 1 drop RIGHT_EYE DAILY 10/06/18 Review of Systems - Review of Systems Constitutional: States: see HPI, malaise, weakness. Denies: chills, fever EENTM: States: see HPI, blurred vision - Chronic blurred vision secondary to eye infections.. Denies: double vision, nose congestion, throat pain, mouth pain Respiratory: States: see HPI. Denies: cough, orthopnea, short of breath, wheezing Cardiology: States: no symptoms reported. Denies: chest pain, palpitations Gastrointestinal/Abdominal: States: no symptoms reported. Denies: abdominal pain, nausea, vomiting Genitourinary: States: no symptoms reported Musculoskeletal: States: see HPI, back pain. Denies: joint pain, joint swelling, muscle pain, muscle stiffness Skin: States: no symptoms reported. Denies: change in color, rash Neurological: States: see HPI, anxiety, depressed, emotional problems, weakness Endocrine: States: no symptoms reported Hematologic/Lymphatic: States: no symptoms reported All other Systems: Reviewed and Negative Past Medical History (General) - Patient Medical History Hx Seizures: No Hx Stroke: No Hx Dementia: No Hx Asthma: No Hx of COPD: No Hx Cardiac Disorders: No Hx Congestive Heart Failure: No Hx Pacemaker: No Hx Hypertension: No Hx Thyroid Disease: No Hx Diabetes: No Hx Gastroesophageal Reflux: No Hx Renal Disease: No Hx Cancer: No Hx of HIV: No Hx Hepatitis C: No Hx MRSA: No Surgical History: other - Vaccination History Hx Tetanus, Diphtheria Vaccination: Yes Hx Influenza Vaccination: Yes - 2017 Hx Pneumococcal Vaccination: Yes - 2018 - Social History Hx Tobacco Use: No Hx Chewing Tobacco Use: No Hx Alcohol Use: No Hx Substance Use: Yes Hx Substance Use Treatment: Yes Hx Depression: Yes Hx Physical Abuse: No Hx Emotional Abuse: No Hx Suspected Abuse: No - Female History Patient is a Female of Child Bearing Age (10 -59 yrs old): No Patient : No Family Medical History - Family History Father Family History: Unknown Living Status: Physical Exam - Physical Exam General Appearance: Frail, Lethargic, Obvious distress, Well Developed, Well Hydrated, Well Nourished Eyes, Ears, Nose, Throat Exam: PERRL/EOMI, normal ENT inspection, pharynx normal Neck: non-tender, full range of motion, supple, normal inspection Respiratory: chest non-tender, lungs clear, normal breath sounds, decreased breath sounds - Mild respiratory depression. Cardiovascular/Chest: normal peripheral pulses, no edema, no gallop, no JVD, no murmur, bradycardia Peripheral Pulses: radial,right: 2+, radial,left: 2+ Gastrointestinal/Abdominal: normal bowel sounds, non tender, soft Extremities Exam: non-tender, normal range of motion, no evidence of injury Neurological: responds to pain, anxious, depressed affect, flat Appearance: disheveled, impaired insight Behavior/Eye Contact/Speech: cooperative - But sedated from the pain medication., decreased rate of speech Thoughts/Hallucinations: other - Patient is perseverating on his back pain. Skin Exam: warm/dry, pallor Progress - Progress Progress: Differential diagnosis: Suicide ideation, suicide attempt by overdose, narcotic abuse, depression among others. 10/20/19 20:23 Patient has been stable here throughout his stay. He has been evaluated by [facility] and they agree he needs inpatient services. We have contacted [facility] and Dr. Carr has accepted the patient for transfer. Patient has agreed to go voluntarily. Plan on transfer this patient. I discussed this plan of care with the patient and his family and they voiced understanding and agreement. Cesar Chin M.D. #[id number] - Results/Orders Results/Orders: 10/20/19 14:40 Sodium Chloride 0.9% (Flush) [Saline Flush Syringe] 10 ml IV PRN PRN Sodium Chloride 0.9% 1000ML [Ns 1000 ml] 1,000 ml IVS .QD 10/20/19 14:45 EKG STAT Laboratory Results - last 24 hr 10/20/19 10/20/19 10/20/19 14:40 14:40 14:40 WBC 6.6 RBC 4.75 Hgb 12.9 L Hct 39.0 L MCV 82.2 MCH 27.1 MCHC 33.0 RDW 15.5 H Plt Count 266 MPV 7.3 L Absolute Neuts (auto) 4.90 Absolute Lymphs (auto) 1.00 Absolute Monos (auto) 0.50 Absolute Eos (auto) 0.10 Absolute Basos (auto) 0.00 Neutrophils % 75.0 Lymphocytes % 15.4 L Monocytes % 7.9 Eosinophils % 1.1 Basophils % 0.6 PT 11.8 H INR 1.19 H PTT (SP) 27.2 Sodium 137 Potassium 4.0 Chloride 102 Carbon Dioxide 27 Anion Gap 12.0 BUN 18 Creatinine 1.36 H BUN/Creatinine Ratio 13.2 Random Glucose 121 H Serum Osmolality 277.0 Calcium 9.5 Total Bilirubin 0.7 AST 29 ALT 16 Alkaline Phosphatase 65 Creatine Kinase 231 H* CK-MB (CK-2) 6.9 H* CK-MB (CK-2) % 2.99 Troponin I < 0.02 Serum Total Protein 7.6 Albumin 4.0 Globulin 3.6 H Albumin/Globulin Ratio 1.1 Urine Color Urine Appearance Urine pH Ur Specific [place] Urine Protein Urine Glucose (UA) Urine Ketones Urine Blood Urine Nitrite Urine Bilirubin Urine Urobilinogen Ur Leukocyte Esterase Urine RBC Urine WBC Ur Epithelial Cells Urine Bacteria Salicylates < 4.0 Urine Opiates Screen Acetaminophen < 10.0 L Urine Barbiturates Ur Phencyclidine Scrn U Amphetamin/Meth Scrn U Benzodiazepines Scrn U Cocaine Metab Screen U Cannabinoids Screen Ethyl Alcohol 10/20/19 10/20/19 10/20/19 14:40 15:57 16:06 WBC RBC Hgb Hct MCV MCH MCHC RDW Plt Count MPV Absolute Neuts (auto) Absolute Lymphs (auto) Absolute Monos (auto) Absolute Eos (auto) Absolute Basos (auto) Neutrophils % Lymphocytes % Monocytes % Eosinophils % Basophils % PT INR PTT (SP) Sodium Potassium Chloride Carbon Dioxide Anion Gap BUN Creatinine BUN/Creatinine Ratio Random Glucose Serum Osmolality Calcium Total Bilirubin AST ALT Alkaline Phosphatase Creatine Kinase CK-MB (CK-2) CK-MB (CK-2) % Troponin I Serum Total Protein Albumin Globulin Albumin/Globulin Ratio Urine Color Yellow Urine Appearance Clear Urine pH 6.0 Ur Specific [place] 1.010 Urine Protein Negative Urine Glucose (UA) Negative Urine Ketones Negative Urine Blood Negative Urine Nitrite Negative Urine Bilirubin Negative Urine Urobilinogen 0.2 Ur Leukocyte Esterase Negative Urine RBC 0 Urine WBC 0-1 Ur Epithelial Cells 1-3 Urine Bacteria 0 Salicylates Urine Opiates Screen Positive H Acetaminophen Urine Barbiturates Negative Ur Phencyclidine Scrn Negative U Amphetamin/Meth Scrn Negative U Benzodiazepines Scrn Positive H U Cocaine Metab Screen Negative U Cannabinoids Screen Negative Ethyl Alcohol < 5.40 EKG performed on 20 October 2019 at 1434 hrs.: Sinus bradycardia at 55 bpm, left axis deviation, incomplete right bundle branch block, nonspecific T wave changes, prolonged QT at 582 ms, abnormal EKG. No comparison EKG available. Departure - Departure Clinical Impression: Suicide attempt by drug overdose, Suicide ideation Depression Qualifiers: Depression Type: unspecified Qualified Code(s): F32.9 - Major depressive disorder, single episode, unspecified Narcotic overdose Qualifiers: Encounter type: initial encounter Injury intent: intentional self-harm Qualified Code(s): T40.602A - Poisoning by unspecified narcotics, intentional self-harm, initial encounter Time of Disposition: 20:00 Disposition: Transfer to Hospital Condition: Fair Referrals: Laurent Quijano III, MD [Primary Care Provider] - 1-2 Weeks Home Medications: Ambulatory Orders ALPRAZolam [Xanax] 0.5 mg PO BEDTIME 10/09/15 Acyclovir [Zovirax] 400 mg PO BID 10/09/15 Dilaudid Pain Pump 1 mg DAILY 11/12/15 Doxycycline (Monohydrate) [Doxycycline] 100 mg PO DAILY 10/06/18 Haloperidol [Haldol] 5 mg PO BEDTIME 10/06/18 Oxycodone HCl [Oxycontin] 15 mg PO Q6H PRN 10/06/18 Prednisolone Opthalmic 1 drop RIGHT_EYE DAILY 10/06/18 Transfer to Outside Facility - Transfer Information Decision to Transfer Date: 10/20/19 Decision to Transfer Time: 18:00 Reason for Transfer: required specialist not available Accepting Facility: [facility]
[2019-10-20] MEDS ORDERED: HYDROmorphone HCL INJ 2 MG/ML VIAL ONE (22:12)
[2019-10-20] MEDS: HYDROmorphone HCL INJ 2 MG/ML VIAL IM ONE (22:13)
[2019-10-20 22:37] VITALS: TEMP 97.9
[2019-10-20 22:38] VITALS: BP 132/80; O2SAT 97
== END 2019-10-20 23:30 | disposition short-term general hospital (02) ==
LOC: ER 14:29
DX: T40.2X2A Poisoning by other opioids, intentional self-harm, initial encounter (principal); F11.10 Opioid abuse, uncomplicated; F32.9 Major depressive disorder, single episode, unspecified; G89.29 Other chronic pain; M54.9 Dorsalgia, unspecified; I45.10 Unspecified right bundle-branch block; R00.1 Bradycardia, unspecified; Z79.899 Other long term (current) drug therapy; Z79.891 Long term (current) use of opiate analgesic; Z91.5 Personal history of self-harm
CPT/HCPCS: 36415; 80053; 80307; 80320; 80329; 81001; 82550; 82553; 84484; 85025; 85610; 85730; 93005; J1170; J2060; J7030

== ENCOUNTER 2020-04-01 00:22 | Emergency (ER) | payer MEDICARE, OTHER ==
[2020-04-01 00:36] VITALS: TEMP 97.3
[2020-04-01] MEDS ORDERED: FLUORESCEIN SODIUM OPHTH STRIP ONE (01:09)
[2020-04-01] MEDS ORDERED: TETRACAINE HCL 0.5% OPHTH SOL 1 DROP ONE (01:09)
--- NOTE | 2020-04-01 01:37 | ED.PDOC ---
History of Present Illness - General Chief Complaint: Eye Problems Stated Complaint: RIGHT EYE PAIN Time Seen by Provider: 04/01/20 01:35 Exam Limitations: no limitations - History of Present Illness Initial Comments: 2 HRS AGO, RT EYE STARTED TO FEEL IRRITATED, LIKE DEBRIS GOT IN IT. PT FLUSHED IT BUT NO IMPROVEMENT. Timing/Duration: abrupt Severity: severe EENT Location: eye (R) Worsening Factors: nothing Associated Symptoms: denies symptoms Allergies/Adverse Reactions: Allergies NO KNOWN ALLERGY Allergy (Verified 10/20/19 14:58) Home Medications: Ambulatory Orders ALPRAZolam [Xanax] 0.5 mg PO BEDTIME 10/09/15 Acyclovir [Zovirax] 400 mg PO BID 10/09/15 Dilaudid Pain Pump 1 mg DAILY 11/12/15 Doxycycline (Monohydrate) [Doxycycline] 100 mg PO DAILY 10/06/18 Haloperidol [Haldol] 5 mg PO BEDTIME 10/06/18 Oxycodone HCl [Oxycontin] 15 mg PO Q6H PRN 10/06/18 Prednisolone Opthalmic 1 drop RIGHT_EYE DAILY 10/06/18 Ciprofloxacin HCl (Ophth) [Ciprofloxacin HCl] 0.3 % OP Q2H #2 susanne 04/01/20 Review of Systems - Review of Systems Constitutional: States: no symptoms reported EENTM: States: eye pain. Denies: blurred vision, ear pain, throat pain Respiratory: States: no symptoms reported Cardiology: States: no symptoms reported Gastrointestinal/Abdominal: States: no symptoms reported Genitourinary: States: no symptoms reported Musculoskeletal: States: no symptoms reported Skin: States: no symptoms reported Neurological: States: no symptoms reported Endocrine: States: no symptoms reported Hematologic/Lymphatic: States: no symptoms reported All other Systems: Reviewed and Negative Past Medical History (General) - Patient Medical History Hx Seizures: No Hx Stroke: No Hx Dementia: No Hx Asthma: No Hx of COPD: No Hx Cardiac Disorders: No Hx Congestive Heart Failure: No Hx Pacemaker: No Hx Hypertension: No Hx Thyroid Disease: No Hx Diabetes: No Hx Gastroesophageal Reflux: No Hx Renal Disease: No Hx Cancer: No Hx of HIV: No Hx Hepatitis C: No Hx MRSA: No Surgical History: no surgical history - Vaccination History Hx Tetanus, Diphtheria Vaccination: Yes Hx Influenza Vaccination: Yes Hx Pneumococcal Vaccination: Yes - Social History Hx Tobacco Use: No Hx Chewing Tobacco Use: No Hx Alcohol Use: No Hx Substance Use: No Hx Substance Use Treatment: No Hx Depression: No Feels Threatened In Home Enviroment: No Feels Threatened In a Relationship: No Hx Physical Abuse: No Hx Emotional Abuse: No Hx Suspected Abuse: No - Female History Patient is a Female of Child Bearing Age (10 -59 yrs old): No Patient : No - Triage Comment ED Triage Comment: The patient was alert and oriented times 4 and complained of pain in his right eye. He denied trauma to the eye and had some redness noted. He rated his pain a 5 and stated that it was less than the pain he had felt the last time he had an open sore in his eye. Family Medical History - Family History Father Family History: Unknown Living Status: Physical Exam - Physical Exam General Appearance: Alert, Well Developed Eye Exam: right other - EOMI. PERRLA. PAIN RESOLVED IMMEDIATELY WITH TETRACAINE DROPS, WHICH INDICATES SUPERFICIAL ETX. NO FOREIGN BODY ON CORNEA OR SCLERA. POS SMALL CORNEAL ABRASION R LATERAL LOWER QUADRANT VIA FLUORESCEIN STAINING. , left normal Ear Exam: bilateral ear: auricle normal, canal normal Nasal Exam: normal inspection Throat Exam: normal mouth inspection Neck: full range of motion, normal inspection Skin Exam: normal color Progress - Results/Orders Results/Orders: RIGHT CORNEAL ABRASION (LATERAL, INFERIOR QUADRANT). NO RETAINED F.B. OR RUST RING. RX'D ABX. 1ST DOSE GIVEN IN ER, SINCE IT IS 1:45 AM. Departure - Departure Clinical Impression: Acute right eye pain Corneal abrasion, right Qualifiers: Encounter type: initial encounter Qualified Code(s): S05.01XA - Injury of conjunctiva and corneal abrasion without foreign body, right eye, initial encounter Disposition: Discharge to Home or Self Care Condition: Good Departure Forms: ED Discharge - Pt. Copy, Patient Portal Self Enrollment Instructions: DI for Eye Pain, Corneal Abrasion (DC) Diet: resume usual diet Activity: increase activity as tolerated Referrals: Laurent Quijano III, MD [Primary Care Provider] - 1-2 Weeks Prescriptions: Ciprofloxacin HCl (Ophth) [Ciprofloxacin HCl] 0.3 % OP Q2H #2 susanne Home Medications: Ambulatory Orders ALPRAZolam [Xanax] 0.5 mg PO BEDTIME 10/09/15 Acyclovir [Zovirax] 400 mg PO BID 10/09/15 Dilaudid Pain Pump 1 mg DAILY 11/12/15 Doxycycline (Monohydrate) [Doxycycline] 100 mg PO DAILY 10/06/18 Haloperidol [Haldol] 5 mg PO BEDTIME 10/06/18 Oxycodone HCl [Oxycontin] 15 mg PO Q6H PRN 10/06/18 Prednisolone Opthalmic 1 drop RIGHT_EYE DAILY 10/06/18 Ciprofloxacin HCl (Ophth) [Ciprofloxacin HCl] 0.3 % OP Q2H #2 susanne 04/01/20 Additional Instructions: Please see an eye doctor (metal finish inspector) in 2 days if it is not starting to improve, but sooner if anything worsens.
[2020-04-01] MEDS ORDERED: CIPROFLOXACIN 0.3% OPHTH SOL 1 DROP ONE (01:42)
[2020-04-01] MEDS ORDERED: CIPROFLOXACIN 0.3% OPHTH SOL 1 DROP RIGHT_EYE ONE (01:43)
[2020-04-01 01:50] VITALS: BP 178/88; O2SAT 95
== END 2020-04-01 01:50 | disposition home or self-care (01) ==
LOC: ER 00:22
DX: S05.01XA Injury of conjunctiva and corneal abrasion without foreign body, right eye, initial encounter (principal); H57.11 Ocular pain, right eye; X58.XXXA Exposure to other specified factors, initial encounter; Y92.9 Unspecified place or not applicable

== ENCOUNTER 2020-06-18 18:30 | Emergency (ER) | payer MEDICARE, OTHER ==
[2020-06-18] MEDS ORDERED: fentaNYL PATCH 50 MCG/HR 1 EA PATCH TD ONE (18:48)
--- NOTE | 2020-06-18 18:51 | ED.PDOC ---
History of Present Illness - General Time Seen by Provider: 06/18/20 18:31 Source: patient Exam Limitations: no limitations - History of Present Illness Initial Comments: The patient is a 74-year-old male presenting to the emergency room secondary to reported symptoms of withdrawal. The patient has a embedded Dilaudid pump. He also takes as needed OxyContin. The patient has been on long-term high-dose opiate therapy for chronic eye and low back pain. I have seen this patient several times in the past. He is very demonstrative and hyperbolic. Patient reports that he started having some shaking and nausea. He is having increased body aches. He has not thrown up. He has had some mild loose stools. No chest pain or syncope. No palpitations. He has had withdrawals multiple times in the past with this constellation of symptoms. The patient is reluctant for a close up exam secondary to coronavirus. He does appear anxious but is not in acute distress. The patient presents in a full- fledged respirator mask. Timing/Duration: other - About 14 hours Severity: moderate Improving Factors: nothing Worsening Factors: nothing Associated Symptoms: diaphoresis, loss of appetite, malaise, nausea/vomiting Allergies/Adverse Reactions: Allergies NO KNOWN ALLERGY Allergy (Verified 10/20/19 14:58) Home Medications: Ambulatory Orders ALPRAZolam [Xanax] 0.5 mg PO BEDTIME 10/09/15 Acyclovir [Zovirax] 400 mg PO BID 10/09/15 Dilaudid Pain Pump 1 mg DAILY 11/12/15 Doxycycline (Monohydrate) [Doxycycline] 100 mg PO DAILY 10/06/18 Haloperidol [Haldol] 5 mg PO BEDTIME 10/06/18 Oxycodone HCl [Oxycontin] 15 mg PO Q6H PRN 10/06/18 Prednisolone Opthalmic 1 drop RIGHT_EYE DAILY 10/06/18 Ciprofloxacin HCl (Ophth) [Ciprofloxacin HCl] 0.3 % OP Q2H #2 susanne 04/01/20 Review of Systems - Review of Systems Constitutional: States: malaise EENTM: States: no symptoms reported Respiratory: States: no symptoms reported Cardiology: States: no symptoms reported Gastrointestinal/Abdominal: States: diarrhea, nausea Genitourinary: States: no symptoms reported Musculoskeletal: States: back pain Skin: States: no symptoms reported Neurological: States: see HPI, anxiety Endocrine: States: excessive sweating, flushing All other Systems: No Change from Baseline Past Medical History (General) - Patient Medical History Hx Seizures: No Hx Stroke: No Hx Dementia: No Hx Asthma: No Hx of COPD: No Hx Cardiac Disorders: No Hx Congestive Heart Failure: No Hx Pacemaker: No Hx Hypertension: No Hx Thyroid Disease: No Hx Diabetes: No Hx Gastroesophageal Reflux: No Hx Renal Disease: No Hx Cancer: No Hx of HIV: No Hx Hepatitis C: No Hx MRSA: No - Vaccination History Hx Tetanus, Diphtheria Vaccination: Yes Hx Influenza Vaccination: Yes Hx Pneumococcal Vaccination: Yes - Social History Hx Tobacco Use: No Hx Chewing Tobacco Use: No Hx Alcohol Use: No Hx Substance Use: No Hx Substance Use Treatment: No Hx Depression: No Hx Physical Abuse: No Hx Emotional Abuse: No Hx Suspected Abuse: No - Female History Patient : No Family Medical History - Family History Father Family History: Unknown Living Status: Physical Exam - Physical Exam General Appearance: Alert, Anxious, Other - Exam is limited per patient request. Ears, Nose, Throat: hearing grossly normal Respiratory: no respiratory distress, no accessory muscle use Cardiovascular/Chest: no edema Peripheral Pulses: radial,right: 2+, radial,left: 2+ Gastrointestinal/Abdominal: other - Dilaudid pump is at the right lower quadrant of the abdomen Rectal Exam: deferred Back Exam: other - Deferred by the patient Extremity: normal range of motion, no pedal edema, normal capillary refill Neurologic: core maker helper II-XII nml as tested, alert, oriented x 3 Skin Exam: normal color Progress - Progress Progress: 06/18/20 18:53 The patient is a 74-year-old male presented emergency room secondary to what this patient suspects to be, and likely is early opiate withdrawal. The patient has had issues with his Dilaudid pump in the past with similar presentations. The patient is used to very large doses of opiates. The patient is going to be placed on a 50 mcg fentanyl patch which can be left in place for 3 days. This should allow him time to contact his pain management doctor for further appropriate evaluation and intervention. Further work-up is deferred today per patient request. ER warnings are given. ander lemus [id number] Departure - Departure Clinical Impression: Opiate withdrawal Disposition: Discharge to Home or Self Care Condition: Fair Instructions: Prescription Drug Withdrawal (DC) Diet: bland diet Activity: increase activity as tolerated Referrals: Laurent Quijano III, MD [Primary Care Provider] - 1-2 Weeks Home Medications: Ambulatory Orders ALPRAZolam [Xanax] 0.5 mg PO BEDTIME 10/09/15 Acyclovir [Zovirax] 400 mg PO BID 10/09/15 Dilaudid Pain Pump 1 mg DAILY 11/12/15 Doxycycline (Monohydrate) [Doxycycline] 100 mg PO DAILY 10/06/18 Haloperidol [Haldol] 5 mg PO BEDTIME 10/06/18 Oxycodone HCl [Oxycontin] 15 mg PO Q6H PRN 10/06/18 Prednisolone Opthalmic 1 drop RIGHT_EYE DAILY 10/06/18 Ciprofloxacin HCl (Ophth) [Ciprofloxacin HCl] 0.3 % OP Q2H #2 susanne 04/01/20 Additional Instructions: The patient is a 74-year-old male presented emergency room secondary to what this patient suspects to be, and likely is early opiate withdrawal. The patient has had issues with his Dilaudid pump in the past with similar presentations. The patient is used to very large doses of opiates. The patient is going to be placed on a 50 mcg fentanyl patch which can be left in place for 3 days. This should allow him time to contact his pain management doctor for further appropriate evaluation and intervention. ER warnings are given.
[2020-06-18 19:00] VITALS: TEMP 97.3; O2SAT 94
[2020-06-18 19:09] VITALS: BP 144/110
== END 2020-06-18 19:12 | disposition home or self-care (01) ==
LOC: ER 18:30
DX: F11.23 Opioid dependence with withdrawal (principal); Z96.89 Presence of other specified functional implants; Z79.891 Long term (current) use of opiate analgesic

== ENCOUNTER 2020-06-20 11:55 | Emergency (ER) | payer MEDICARE ==
--- NOTE | 2020-06-20 12:13 | ED.PDOC ---
History of Present Illness - General Chief Complaint: Back Pain or Injury Time Seen by Provider: 06/20/20 12:05 Source: patient, RN notes reviewed, Vital Signs reviewed - History of Present Illness Initial Comments: This is a 74-year-old male with history of chronic eye and back pain who sees pain management. He currently takes OxyContin as well as Dilaudid via pain pump. He states his pain pump stopped working 3 days ago. He was seen in the emergency department 2 days ago for opiate withdrawals. He was given a fentanyl patch at that time. He states the fentanyl patch came off his skin, and he is currently holding it on with tape. He states he is having difficulty sleeping and is concerned that he may be going into opiate withdrawal again. He denies any vomiting, diarrhea or piloerection. He denies any fever or recent trauma. He states his pain currently is tolerable. He has an appointment with his pain management doctor in 3 days, and he has an appointment with his PCP in 2 days. Allergies/Adverse Reactions: Allergies NO KNOWN ALLERGY Allergy (Verified 10/20/19 14:58) Home Medications: Ambulatory Orders ALPRAZolam [Xanax] 0.5 mg PO BEDTIME 10/09/15 Acyclovir [Zovirax] 400 mg PO BID 10/09/15 Dilaudid Pain Pump 1 mg DAILY 11/12/15 Doxycycline (Monohydrate) [Doxycycline] 100 mg PO DAILY 10/06/18 Haloperidol [Haldol] 5 mg PO BEDTIME 10/06/18 Oxycodone HCl [Oxycontin] 15 mg PO Q6H PRN 10/06/18 Prednisolone Opthalmic 1 drop RIGHT_EYE DAILY 10/06/18 Ciprofloxacin HCl (Ophth) [Ciprofloxacin HCl] 0.3 % OP Q2H #2 susanne 04/01/20 Review of Systems - Review of Systems Constitutional: Denies: chills, fever EENTM: Denies: nose congestion, throat pain Respiratory: Denies: short of breath, wheezing Cardiology: Denies: chest pain, edema Gastrointestinal/Abdominal: Denies: diarrhea, nausea, vomiting Genitourinary: Denies: dysuria, hematuria Musculoskeletal: States: back pain. Denies: muscle stiffness, neck pain Neurological: Denies: headache, tingling, weakness Past Medical History (General) - Patient Medical History Hx Seizures: No Hx Stroke: No Hx Dementia: No Hx Asthma: No Hx of COPD: No Hx Cardiac Disorders: No Hx Congestive Heart Failure: No Hx Pacemaker: No Hx Hypertension: No Hx Thyroid Disease: No Hx Diabetes: No Hx Gastroesophageal Reflux: No Hx Renal Disease: No Hx Cancer: No Hx of HIV: No Hx Hepatitis C: No Hx MRSA: No - Vaccination History Hx Tetanus, Diphtheria Vaccination: Yes Hx Influenza Vaccination: Yes Hx Pneumococcal Vaccination: Yes - Social History Hx Tobacco Use: No Hx Chewing Tobacco Use: No Hx Alcohol Use: No Hx Substance Use: No Hx Substance Use Treatment: No Hx Depression: No Hx Physical Abuse: No Hx Emotional Abuse: No Hx Suspected Abuse: No - Female History Patient : No Family Medical History - Family History Father Family History: Unknown Living Status: Physical Exam - Physical Exam General Appearance: Alert, Comfortable Ears, Nose, Throat: other - Patient wearing N95 respirator, voice is normal, oropharyngeal exam deferred. Respiratory: lungs clear, normal breath sounds, no respiratory distress, no accessory muscle use Cardiovascular/Chest: regular rate, rhythm, no edema, tachycardia Gastrointestinal/Abdominal: non tender, soft Back Exam: normal inspection, no CVA tenderness Extremity: normal range of motion, normal inspection Neurologic: no motor/sensory deficits, alert, normal mood/affect Skin Exam: normal color, warm/dry, other - No piloerection Progress - Results/Orders Results/Orders: MDM: Patient with longstanding history of chronic back pain, on chronic opiate therapy with OxyContin and Dilaudid pump. Dilaudid pump is not working. Seen in the emergency room 2 days ago for opiate withdrawals. He is concerned that he might go into opiate withdrawals again and feels he may be having early symptoms at this time, he denies any vomiting, diarrhea or or piloerection. No new trauma or injury. He states his back pain is typical of his chronic back pain and is fairly well controlled at this time. No indication for any additional imaging. 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 I recommended he keep that appointment without fail. Will give additional fentanyl patch for his back pain and to prevent opiate withdrawal. Patient is comfortable with this plan. Strict warnings given to return the emergency room for worsening pain, fever, shortness of breath, vomiting, diarrhea, piloerection, or other concerns Andres Moore DO [facility][id number] Departure - Departure Clinical Impression: Opiate dependence, continuous Chronic back pain Qualifiers: Back pain location: low back pain Back pain laterality: unspecified Sciatica presence: unspecified whether sciatica present Qualified Code(s): M54.5 - Low back pain; G89.29 - Other chronic pain Time of Disposition: 12:17 Disposition: Discharge to Home or Self Care Condition: Good Departure Forms: ED Discharge - Pt. Copy, Patient Portal Self Enrollment Instructions: DI for Low Back Pain, Chronic Pain (DC) Diet: resume usual diet Activity: increase activity as tolerated Referrals: Laurent Quijano III, MD [Primary Care Provider] - 1-2 Days Home Medications: Ambulatory Orders ALPRAZolam [Xanax] 0.5 mg PO BEDTIME 10/09/15 Acyclovir [Zovirax] 400 mg PO BID 10/09/15 Dilaudid Pain Pump 1 mg DAILY 11/12/15 Doxycycline (Monohydrate) [Doxycycline] 100 mg PO DAILY 10/06/18 Haloperidol [Haldol] 5 mg PO BEDTIME 10/06/18 Oxycodone HCl [Oxycontin] 15 mg PO Q6H PRN 10/06/18 Prednisolone Opthalmic 1 drop RIGHT_EYE DAILY 10/06/18 Ciprofloxacin HCl (Ophth) [Ciprofloxacin HCl] 0.3 % OP Q2H #2 susanne 04/01/20
[2020-06-20 12:14] VITALS: TEMP 98.4
[2020-06-20] MEDS ORDERED: fentaNYL PATCH 75 MCG/HR 1 EA PATCH TD SCH (12:30)
[2020-06-20 12:49] VITALS: BP 142/89; O2SAT 99
== END 2020-06-20 12:30 | disposition home or self-care (01) ==
LOC: ER 11:55
DX: G89.29 Other chronic pain (principal); M54.5 Low back pain; F11.20 Opioid dependence, uncomplicated

== ENCOUNTER 2020-09-17 23:07 | Emergency (ER) | payer MEDICARE ==
[2020-09-17] MEDS ORDERED: IPRATROPIUM/ALBUTEROL 3 ML VIAL NEB ONE (23:16)
[2020-09-17] MEDS ORDERED: ACETYLCYSTEIN 20 % 6,000 MG/30 ML VIAL ONE (23:26)
--- NOTE | 2020-09-17 23:39 | RAD ---
EXAM DESCRIPTION: Chest,1 View 09/17/2020 11:37 PM [employer] CLINICAL HISTORY: 74 years, Male, feels sob right lung, started after eating COMPARISON: 10/16/2018 FINDINGS: Single view of the chest was obtained portable. Prior films were compared. The heart is not enlarged. The thoracic aorta is tortuous. The cardiomediastinal silhouette demonstrate to be unremarkable. The pulmonary vasculature is normal distribution. There is no evidence for pneumothorax. Minimal linear densities within the lung bases correspond to atelectasis. Costophrenic angles are sharp. No areas of consolidation or masses are seen. The rest of the soft tissue and bony structures demonstrate to be unremarkable. IMPRESSION: MINIMAL LINEAR DENSITIES LUNG BASES SUGGESTING ATELECTASIS. NO ACUTE CARDIOPULMONARY DISEASE SEEN. Electronically signed by: Laurent Ferreira MD 09/17/2020 11:38 PM [employer]
[2020-09-18] MEDS ORDERED: AMOXICILLIN & POT CLAVULANATE 875 MG TAB PO ONE (00:06)
[2020-09-18] MEDS ORDERED: predniSONE 20 MG TAB PO ONE (00:06)
--- NOTE | 2020-09-18 00:09 | ED.PDOC ---
History of Present Illness - General Time Seen by Provider: 09/17/20 23:11 Source: patient Exam Limitations: no limitations - History of Present Illness Initial Comments: The patient is a 74-year-old male presents emergency room secondary to likely having aspirated a piece of Spanish toast down in his right lung field. He comes in coughing vigorously. He is able to swallow liquids and other solids without difficulty. No vomiting. He is not hypoxic. He has not had this happen to him before. He does have some rhonchi in the right midlung field. Again he is not hypoxic. He does have a history of some COPD and does have breathing treatments at home. Timing/Duration: 1/2 hour Severity: severe Improving Factors: nothing Worsening Factors: nothing Associated Symptoms: cough Allergies/Adverse Reactions: Allergies NO KNOWN ALLERGY Allergy (Verified 06/20/20 12:16) Home Medications: Ambulatory Orders ALPRAZolam [Xanax] 0.5 mg PO BEDTIME 10/09/15 Acyclovir [Zovirax] 400 mg PO BID 10/09/15 Dilaudid Pain Pump 1 mg DAILY 11/12/15 Doxycycline (Monohydrate) [Doxycycline] 100 mg PO DAILY 10/06/18 Haloperidol [Haldol] 5 mg PO BEDTIME 10/06/18 Oxycodone HCl [Oxycontin] 15 mg PO Q6H PRN 10/06/18 Prednisolone Opthalmic 1 drop RIGHT_EYE DAILY 10/06/18 Ciprofloxacin HCl (Ophth) [Ciprofloxacin HCl] 0.3 % OP Q2H #2 susanne 04/01/20 Amoxicillin & Pot Clavulanate [Augmentin Tab] 875 mg PO BID #10 tab 09/18/20 predniSONE [Prednisone] 20 mg PO DAILY #5 tab 09/18/20 Review of Systems - Review of Systems Constitutional: States: no symptoms reported EENTM: States: no symptoms reported Respiratory: States: cough, short of breath Cardiology: States: no symptoms reported Gastrointestinal/Abdominal: States: no symptoms reported Genitourinary: States: no symptoms reported Musculoskeletal: States: no symptoms reported Skin: States: no symptoms reported Neurological: States: anxiety - Severe Endocrine: States: no symptoms reported All other Systems: Reviewed and Negative Past Medical History (General) - Patient Medical History Hx Seizures: No Hx Stroke: No Hx Dementia: No Hx Asthma: No Hx of COPD: No Hx Cardiac Disorders: No Hx Congestive Heart Failure: No Hx Pacemaker: No Hx Hypertension: No Hx Thyroid Disease: No Hx Diabetes: No Hx Gastroesophageal Reflux: No Hx Renal Disease: No Hx Cancer: No Hx of HIV: No Hx Hepatitis C: No Hx MRSA: No - Vaccination History Hx Tetanus, Diphtheria Vaccination: Yes Hx Influenza Vaccination: Yes Hx Pneumococcal Vaccination: Yes - Social History Hx Tobacco Use: No Hx Chewing Tobacco Use: No Hx Alcohol Use: No Hx Substance Use: No Hx Substance Use Treatment: No Hx Depression: No Hx Physical Abuse: No Hx Emotional Abuse: No Hx Suspected Abuse: No - Female History Patient : No Family Medical History - Family History Father Family History: Unknown Living Status: Physical Exam - Physical Exam General Appearance: Alert, Anxious Ears, Nose, Throat: hearing grossly normal, normal pharynx Neck: full range of motion, supple Respiratory: no respiratory distress, no accessory muscle use, other - Copious coughing and rhonchi to the right midlung field Cardiovascular/Chest: normal peripheral pulses, regular rate, rhythm, no edema Peripheral Pulses: radial,right: 2+, radial,left: 2+ Gastrointestinal/Abdominal: non tender, soft Rectal Exam: deferred Extremity: normal range of motion, no pedal edema, normal capillary refill Neurologic: dye range operator II-XII nml as tested, alert, oriented x 3 Skin Exam: normal color Progress - Progress Progress: 09/18/20 00:08 The patient is a 74-year-old male presenting with what was likely aspirated Spanish toast to the right midlung field. The patient received several breathing treatments and CPT. It does appear that he is doing better than he was upon arrival. He is likely at least moved a better part of the debris out. CT scan to evaluate the bronchi has been offered however the patient is deferring that at this time to go home and do breathing treatments at home and begin his chair as he does have chronic back pain. He is not hypoxic. He is receiving a dose of prednisone and Augmentin prior to discharge and will be on these for at least the next 5 days. ER warnings are given for any worsening. Keep routine follow-up with primary care doctor otherwise. ander lemus [id number] - Results/Orders Results/Orders: Chest x-ray shows no obvious acute pathology. Chronic changes are present. Departure - Departure Clinical Impression: Aspiration into lower respiratory tract Qualifiers: Encounter type: initial encounter Qualified Code(s): T17.800A - Unspecified foreign body in other parts of respiratory tract causing asphyxiation, initial encounter Disposition: Discharge to Home or Self Care Condition: Fair Instructions: Aspiration Pneumonia Diet: regular diet Activity: increase activity as tolerated Referrals: Laurent Quijano III, MD [Primary Care Provider] - 1-2 Weeks Prescriptions: Amoxicillin & Pot Clavulanate [Augmentin Tab] 875 mg PO BID #10 tab predniSONE [Prednisone] 20 mg PO DAILY #5 tab Home Medications: Ambulatory Orders ALPRAZolam [Xanax] 0.5 mg PO BEDTIME 10/09/15 Acyclovir [Zovirax] 400 mg PO BID 10/09/15 Dilaudid Pain Pump 1 mg DAILY 11/12/15 Doxycycline (Monohydrate) [Doxycycline] 100 mg PO DAILY 10/06/18 Haloperidol [Haldol] 5 mg PO BEDTIME 10/06/18 Oxycodone HCl [Oxycontin] 15 mg PO Q6H PRN 10/06/18 Prednisolone Opthalmic 1 drop RIGHT_EYE DAILY 10/06/18 Ciprofloxacin HCl (Ophth) [Ciprofloxacin HCl] 0.3 % OP Q2H #2 susanne 04/01/20 Amoxicillin & Pot Clavulanate [Augmentin Tab] 875 mg PO BID #10 tab 09/18/20 predniSONE [Prednisone] 20 mg PO DAILY #5 tab 09/18/20 Additional Instructions: The patient is a 74-year-old male presenting with what was likely aspirated Spanish toast to the right midlung field. The patient received several breathing treatments and CPT. It does appear that he is doing better than he was upon arrival. He is likely at least moved a better part of the debris out. CT scan to evaluate the bronchi has been offered however the patient is deferring that at this time to go home and do breathing treatments at home and begin his chair as he does have chronic back pain. He is not hypoxic. He is receiving a dose of prednisone and Augmentin prior to discharge and will be on these for at least the next 5 days. ER warnings are given for any worsening. Keep routine follow-up with primary care doctor otherwise.
[2020-09-18 00:22] VITALS: BP 158/106; TEMP 96.5; O2SAT 100
[2020-09-18] MEDS ORDERED: ACETYLCYSTEIN 20 % 6,000 MG/30 ML VIAL NEB ONE (23:17)
== END 2020-09-18 00:25 | disposition home or self-care (01) ==
LOC: ER 23:07
DX: T17.920A Food in respiratory tract, part unspecified causing asphyxiation, initial encounter (principal); J44.9 Chronic obstructive pulmonary disease, unspecified; F41.9 Anxiety disorder, unspecified; Z79.899 Other long term (current) drug therapy
CPT/HCPCS: 71045; 94640; J7512; J7620